=== PATIENT | male | born 2000 | race Caucasian/White ===

== ENCOUNTER 2022-03-29 20:14 | Emergency (ER) | payer SELFPAY ==
[~2022-03-29] VITALS: Ht 188 cm; Wt 69.2 kg
[2022-03-29 21:17] VITALS: BP 116/76
[2022-03-30] MEDS ORDERED: LIDOCAINE HCL/EPINEPHRINE 1%-EPI 1:100,000 50 ML VIAL INFIL ONE (00:30)
[2022-03-30] MEDS ORDERED: ACETAMINOPHEN 325MG TABLET PO ONE (00:30)
[2022-03-30] MEDS ORDERED: NAPR-681 MT (02:38)
== END 2022-03-30 02:50 | disposition home or self-care (01) ==
LOC: ER 20:14
DX: S51.812A Laceration without foreign body of left forearm, initial encounter (principal); W26.8XXA Contact with other sharp object(s), not elsewhere classified, initial encounter; Y93.89 Activity, other specified; Y92.89 Other specified places as the place of occurrence of the external cause; Y99.8 Other external cause status; F17.290 Nicotine dependence, other tobacco product, uncomplicated
CPT/HCPCS: 12005; 99282; 99406